=== PATIENT | male | born 2000 | race Two or more races ===

== ENCOUNTER 2020-06-06 10:41 | Emergency (ER) | payer BC, MEDICAID ==
[~2020-06-06] VITALS: Ht 170.2 cm; Wt 102.1 kg
[2020-06-06 10:56] VITALS: BP 146/83
--- NOTE | 2020-06-06 11:01 | NUR ---
ED Nurse Note: Patient from home walked in due to right ankle pain x 4 days. Denies fall or injury.
[2020-06-06] MEDS ORDERED: IBUPROFEN600 M1 ORAL (12:29)
[2020-06-06 12:41] VITALS: BP 121/80
--- NOTE | 2020-06-06 12:41 | NUR ---
ER DISCHARGE NOTE: Patient is cleared to be discharged per ERMD, pt is aox4, on room air, with stable vital signs. pt was given dc, prescription and how to use his crutches instructions, pt was able to verbalize understanding, pt id band removed without complications. pt is able to ambulate with his crutches. pt took all belongings.
--- NOTE | 2020-06-06 12:53 | Diagnostic Imaging Report ---
EXAM: XR Right Foot Complete, 3 or More Views CLINICAL HISTORY: PAIN TECHNIQUE: Frontal, lateral and oblique views of the right foot. COMPARISON: None FINDINGS: Bones/joints: No displaced fracture or dislocation identified. Joint space is maintained. No bony lesion. Soft tissues: Normal. IMPRESSION: No displaced fracture or dislocation identified.
--- NOTE | 2020-06-06 12:55 | Diagnostic Imaging Report ---
EXAM: XR Right Ankle Complete, 3 or More Views CLINICAL HISTORY: PAIN TECHNIQUE: Frontal, lateral and oblique views of the right ankle. COMPARISON: None FINDINGS: Bones/joints: No displaced fracture or dislocation identified. Ankle mortise is intact. Ankle joint effusion. Soft tissues: Soft tissue swelling over the right lateral malleolus. IMPRESSION: No displaced fracture or dislocation identified.
--- NOTE | 2020-06-07 15:11 | Emergency Room Report ---
History of Present Illness General Chief Complaint: Pain Source: Patient Present Illness HPI 19-year-old male presents the ED complaining of right ankle pain. Started 3 days ago. Denies any fall or injury but states that when he bears weight he is having intense pain in his right ankle. Dull, 9 out of 10, nonradiating. Denies any other injuries. No other aggravating relieving factors. Denies any other associated symptoms Allergies: Coded Allergies: No Known Allergies (Unverified , 06/06/20) COVID-19 Screening Contact w/high risk pt: No Experienced COVID-19 symptoms?: No COVID-19 Testing performed [employer]: No Patient History Past Medical History: none Past Surgical History: none Pertinent Family History: none Social History: Denies: smoking, alcohol use, drug use Immunizations: UTD Reviewed Nursing Documentation: PMH: Agreed; PSxH: Agreed Review of Systems All Other Systems: negative except mentioned in HPI Physical Exam Vital Signs Date Time Temp Pulse Resp B/P (MAP) Pulse Ox O2 Delivery O2 Flow Rate FiO2 06/06/20 10:47 99.3 91 16 146/83 (104) 98 Room Air Sp02 EP Interpretation: reviewed, normal General Appearance: no apparent distress, alert, GCS 15, non-toxic Head: normocephalic Eyes: bilateral eye normal inspection, bilateral eye PERRL ENT: normal ENT inspection Neck: normal inspection Respiratory: normal inspection Cardiovascular #1: normal inspection Gastrointestinal: normal inspection Rectal: deferred Genitourinary: no CVA tenderness Musculoskeletal: back normal, normal range of motion, gait/station normal, tender - R ankle Neurologic: alert, motor strength/tone normal, oriented x3, sensory intact, responsive, speech normal Psychiatric: normal inspection Skin: no rash Lymphatic: normal inspection Procedures Splinting Splinting : Consent: Verbal Pre-Made Type: LUCHO wrap Pre-Proc Neuro Vasc Exam: normal Post-Proc Neuro Vasc Exam: normal Patient Tolerated: Well Complications: None Medical Decision Making Diagnostic Impression: Primary Impression: Ankle pain Qualified Codes: M25.571 - Pain in right ankle and joints of right foot ER Course Hospital Course 19-year-old M presents to ED complaining of R ankle pain Differential diagnoses include: Fracture, dislocation, sprain, contusion Clinical course Patient placed on stretcher. After initial history and physical, I ordered pain medications and Xrays of R foot/ankle Xrays prelim read shows no acute fracture/dislocation. placed in lucho wrap, given crutches I discussed findings with patient. Possible sprain. Safe for discharge for close outpatient follow-up. Placed in Lucho wrap and crutches. I will provide referrals. Diagnosis - ankle sprain Stable and discharged to home with prescription for Motrin. apply ice, keep elevated. weight bear as tolerated. Followup with PMD/ortho. Return to ED if symptoms recur or worsen Other X-Ray Diagnostic Results Other X-Ray Diagnostic Results #1: X-Ray ordered: R ankle # of Views/Limited Vs Complete: 3 View Indication: Pain EP Interpretation: Yes Interpretation: no dislocation, no soft tissue swelling, no fractures Impression: No acute disease Electronically Signed by: Electronically signed by French Parham MD Other X-Ray Diagnostic Results #2: X-Ray ordered: R foot # of Views/Limited Vs Complete: 3 View Indication: Pain EP Interpretation: Yes Interpretation: no dislocation, no soft tissue swelling, no fractures Impression: No acute disease Electronically Signed by: Electronically signed by French Parham MD Last Vital Signs Date Time Temp Pulse Resp B/P (MAP) Pulse Ox O2 Delivery O2 Flow Rate FiO2 06/06/20 12:41 98.0 76 20 121/80 100 Room Air Status: improved Disposition: HOME, SELF-CARE Condition: Stable Scripts Ibuprofen* (MOTRIN*) 600 Mg Tablet 600 MG ORAL Q8H PRN for FOR PAIN, #30 TAB 0 Refills Prov: French Parham MD 06/06/20 Referrals: NON PHYSICIAN (PCP) [facility] Open 24 hour /7 days a week by Appointment Only [address] [facility] [address] Departure Forms: Return to Work Return to Work Date: Jun 08, 2020 Work Restrictions: No Heavy Lifting Patient Instructions: Ankle Sprain, [id number] French Parham MD Jun 07, 2020 15:11
== END 2020-06-06 12:46 | disposition home or self-care (01) ==
LOC: EMR 12:35
DX: M25.571 Pain in right ankle and joints of right foot (principal)
CPT/HCPCS: 73610; 73630; Z7502; 99284